=== PATIENT | male | born 1950 | race Two or more races ===

== ENCOUNTER 2018-09-18 09:27 | Day surgery (SDC) | payer MEDICARE, OTHER ==
[~2018-09-18 09:27] MED LIST: CEFAZOLIN 1 GM INJ; ROCURONIUM 50 MG INJ
[2018-09-18 10:21] LABS: ADD MAN DIFF? NO
[2018-09-18 10:35] LABS: BASOPHILS % 0.7 % (0.0-2.0); EOSINOPHILS # 0.1 10^3/ul (0.0-0.5); EOSINOPHILS % 2.4 % (0.0-7.0); HEMATOCRIT 46.3 % (42.0-52.0); HEMOGLOBIN 15.1 g/dl (14.0-18.0); LYMPHOCYTES # 1.6 10^3/ul (0.8-2.9); LYMPHOCYTES % 37.2 % (15.0-51.0); MEAN CORPUSCULAR HEMOGLOBIN 27.3 pg (29.0-33.0); MEAN CORPUSCULAR HGB CONC 32.6 g/dl (32.0-37.0); MEAN CORPUSCULAR VOLUME 83.6 fl (82.0-101.0); MEAN PLATELET VOLUME 9.3 fl (7.4-10.4); MONOCYTE # 0.3 10^3/ul (0.3-0.9); MONOCYTES % 7.6 % (0.0-11.0); NEUTROPHIL # 2.2 10^3/ul (1.6-7.5); NEUTROPHILS % 51.9 % (39.0-77.0); PLATELET COUNT 219 10^3/UL (140-415); RED BLOOD COUNT 5.54 10^6/ul (4.70-6.10)
[2018-09-18 10:35] LABS: WHITE BLOOD COUNT 4.2 10^3/ul (4.8-10.8)
[2018-09-18 10:51] LABS: ALANINE AMINOTRANSFERASE 33 IU/L (13-69); ALBUMIN 4.5 g/dl (3.3-4.9); ALBUMIN/GLOBULIN RATIO 1.25; ALKALINE PHOSPHATASE 52 IU/L (42-121); ANION GAP 10 (5-13); ASPARTATE AMINO TRANSFERASE 35 IU/L (15-46); BILIRUBIN,INDIRECT 0.4 mg/dl (0-1.1); BILIRUBIN,TOTAL 0.4 mg/dl (0.2-1.3); BLOOD UREA NITROGEN 18 mg/dl (7-20); CALCIUM 9.6 mg/dl (8.4-10.2); CARBON DIOXIDE 24 mmol/L (21-31); CHLORIDE 103 mmol/L (97-110); Estimated GFR > 60 mL/min (>60); GLUCOSE 88 mg/dl (70-220); INR 0.95; POTASSIUM 4.3 mmol/L (3.5-5.1); PROTIME 12.8 Sec (11.9-14.9); SODIUM 137 mmol/L (135-144); TOTAL PROTEIN 8.1 g/dl (6.1-8.1)
[2018-09-18 10:52] LABS: PARTIAL THROMBOPLASTIN TIME 29.3 Sec (23.0-35.0)
[2018-09-18] MEDS ORDERED: PROPOFOL 20 ML (11:53)
[2018-09-18] MEDS ORDERED: DEXAMETHASONE 4 MG/ML 5 ML INJ (11:53)
[2018-09-18] MEDS ORDERED: FENTAnyl 50 MCG/ML VIAL (11:53)
[2018-09-18] MEDS ORDERED: MIDAZOLAM 1 MG/ML 2 ML INJ (11:53)
[2018-09-18] MEDS ORDERED: LIDOCAINE 2% (SDV) 5 ML INJ (11:53)
[2018-09-18] MEDS ORDERED: SUCCINYLCHOLINE CHLORIDE 100 MG/5 ML SYG IV (11:53)
[2018-09-18] MEDS ORDERED: ONDANSETRON 4 MG INJ (11:53)
[2018-09-18] MEDS ORDERED: FENTAnyl 50 MCG/ML VIAL IV (12:00)
[2018-09-18] MEDS ORDERED: ONDANSETRON 4 MG INJ IV ×2 (12:00→13:30)
[2018-09-18] MEDS ORDERED: SUGAMMADEX SODIUM 200 MG/2 ML VIAL IV (12:36)
[2018-09-18] MEDS ORDERED: KETOROLAC 30 MG INJ (12:41)
[2018-09-18] MEDS ORDERED: LACTATED RINGER'S 1,000 ML IV ×2 (13:22)
[2018-09-18] MEDS: BUPIVACAINE 0.5%/EPI (SDV) 30 ML INJ (13:29)
[2018-09-18] MEDS: LIDOCAINE 1% (MPF) 30 ML INJ (13:29)
[2018-09-18] MEDS ORDERED: HYDROCODONE/APAP (5/325) TAB PO (13:30)
== END 2018-09-18 15:25 | disposition home or self-care (01) ==
LOC: SDS 09:27
DX: D17.0 Benign lipomatous neoplasm of skin and subcutaneous tissue of head, face and neck (principal)
CPT/HCPCS: 21556; 71045; 80053; 85025; 85610; 85730; 88307; 93005